=== PATIENT | female | born 1970 | race Caucasian/White ===

== ENCOUNTER 2017-03-22 12:34 | Emergency (ER) | payer MEDICAID, OTHER ==
[2017-03-22 12:54] VITALS: RESP 16; TEMP 98.4; O2SAT 96
--- NOTE | 2017-03-22 13:30 | EDPHY ---
H & P Stated Complaint: pain and swelling rt knee d/t injury this past Sunday noc Time Seen by Provider: 03/22/17 12:49 HPI/ROS: CHIEF COMPLAINT: Knee pain HISTORY OF PRESENT ILLNESS: Patient is a 47-year-old healthy female who comes to the emergency department complaining of right knee pain and swelling. She states that 2 days ago she was dancing and twisted it and had significant pain. She was able to arrested for the remainder of that evening. Yesterday however she was up and walking a lot at work. Today her pain is significantly increased and her knee is swollen. It does not feel unstable. She does not have any tingling numbness or weakness. She denies other injuries. REVIEW OF SYSTEMS: Constitutional: denies: chills, fever, recent illness, recent injury EENTM: denies: blurred vision, double vision, nose congestion Respiratory: denies: cough, shortness of breath Cardiac: denies: chest pain, irregular heart rate, lightheadedness, palpitations Gastrointestinal/Abdominal: denies: abdominal pain, diarrhea, nausea, vomiting, blood streaked stools Genitourinary: denies: dysuria, frequency, hematuria, pain Musculoskeletal: See HPI Skin: denies: lesions, rash, jaundice, bruising Neurological: denies: headache, numbness, paresthesia, tingling, dizziness, weakness Hematologic/Lymphatic: denies: blood clots, easy bleeding, easy bruising Immunologic/allergic: denies: HIV/AIDS, transplant EXAM: GENERAL: Well-appearing, well-nourished and in no acute distress. HEAD: Atraumatic, normocephalic. EYES: Pupils equal round and reactive to light, extraocular movements intact, sclera anicteric, conjunctiva are normal. ENT: TMs normal, nares patent, oropharynx clear without exudates. Moist mucous membranes. NECK: Normal range of motion, supple without lymphadenopathy or JVD. LUNGS: Breath sounds clear to auscultation bilaterally and equal. No wheezes rales or rhonchi. HEART: Regular rate and rhythm without murmurs, rubs or gallops. ABDOMEN: Soft, nontender, normoactive bowel sounds. No guarding, no rebound. No masses appreciated. BACK: No CVA tenderness, no spinal tenderness, step-offs or deformities EXTREMITIES: Right knee with effusion, no erythema or warmth. No tendon laxity. Able to stand. No pain with axial loading or grinding. NEUROLOGICAL: Cranial nerves II through XII grossly intact. Normal speech, normal gait. 5/5 strength, normal movement in all extremities, normal sensation PSYCH: Normal mood, normal affect. SKIN: Warm, dry, normal turgor, no visible rashes or lesions. Source: Patient Exam Limitations: No limitations - Personal History LMP (Females 10-55): 8-14 Days Ago - Medical/Surgical History Hx Asthma: No Hx Chronic Respiratory Disease: No Hx Diabetes: No Hx Cardiac Disease: No Hx Renal Disease: No Hx Cirrhosis: No Hx Alcoholism: No Hx HIV/AIDS: No Hx Splenectomy or Spleen Trauma: No Other PMH: Med hx-htn,hyperlipidemia. Surg-left knee and left inguinal hernia - Family History Significant Family History: No pertinent family hx - Social History Smoking Status: Never smoked Alcohol Use: Sober Drug Use: None Constitutional: Initial Vital Signs Temperature (C) 36.9 C 03/22/17 12:40 Heart Rate 95 03/22/17 12:40 Respiratory Rate 16 03/22/17 12:40 Blood Pressure 154/87 H 03/22/17 12:40 O2 Sat (%) 96 03/22/17 12:40 O2 Delivery Mode Room Air Allergies/Adverse Reactions: No Known Allergies Allergy (Verified 03/22/17 12:47) Home Medications: Medication Instructions Recorded Losartan Potassium 03/22/17 Pravastatin Sodium 03/22/17 Medical Decision Making - Diagnostics Imaging: Discussed imaging studies w/ call center director Radiologist Procedures: Arthrocentesis: After obtaining verbal consent and using sterile technique the patient's knee was cleansed and then anesthetized with 0.5% bupivacaine. Her knee was then entered from the medial aspect with an 18 gauge needle and 8 cc of bloody synovial fluid obtained. Patient felt better. Bleeding controlled. No significant blood loss. ED Course/Re-evaluation: Patient is relieved with the x-ray results. Performed arthrocentesis and obtained about 8 cc of bloody fluid. The patient felt better. We discussed follow-up with Orthopedics. I will place her in an Vick wrap and she will continue to use crutches to rest her leg. We discussed anti-inflammatories rest ice and elevation. We discussed indications for returning to the emergency department. Differential Diagnosis: Partial list of the Differential diagnosis considered include but were not limited to; hemarthrosis, meniscus injury, ligamentous injury and although unlikely based on the history and physical exam, I also considered fracture, dislocation, nerve injury. I discussed these differential diagnoses and the plan with the patient as well as the usual and expected course. The patient understands that the diagnosis is provisional and that in medicine we are not always correct and that further workup is often warranted. Usual and customary warnings were given. All of the patient's questions were answered. The patient was instructed to return to the emergency department should the symptoms at all worsen or return, otherwise to followup with the physician as we discussed. Departure - Departure Disposition: Home, Routine, Self-Care Clinical Impression: Hemarthrosis Condition: Fair Instructions: Swollen Knee Joint (ED) Referrals: TIANA NELSON,. [Primary Care Provider] - As per Instructions Kourtney Kapadia MD [Medical Doctor] - 5-7 days, call for appt.
[2017-03-22 13:58] VITALS: BP 142/82; PULSE 84
== END 2017-03-22 13:35 | disposition home or self-care (01) ==
LOC: CED 12:34
PROC: 0M9N3ZZ Drainage of Right Knee Bursa and Ligament, Percutaneous Approach (ICD-10-PCS; principal; 2017-03-22)
DX: M25.061 Hemarthrosis, right knee (principal); I10 Essential (primary) hypertension
CPT/HCPCS: 73564-PO

== ENCOUNTER → 2017-06-12 | Outpatient (CLI) | payer MEDICAID | LOC: FIMAGING 15:24 | PROVIDERS: ATTEND Physician Assistant | DX: M25.561 Pain in right knee (principal); M23.611 Other spontaneous disruption of anterior cruciate ligament of right knee; M23.321 Other meniscus derangements, posterior horn of medial meniscus, right knee; M25.461 Effusion, right knee; S82.101D Unspecified fracture of upper end of right tibia, subsequent encounter for closed fracture with routine healing; X50.0XXD Overexertion from strenuous movement or load, subsequent encounter ==